=== PATIENT | female | born 2000 | race Caucasian/White ===

== ENCOUNTER 2018-03-07 11:24 | Emergency (ER) | payer MEDICAID ==
[~2018-03-07] VITALS: Ht 160 cm; Wt 66.0 kg
[2018-03-07 11:29] VITALS: BP 112/73
== END 2018-03-07 12:20 | disposition home or self-care (01) ==
LOC: ED 12:04
DX: N64.4 Mastodynia (principal)
CPT/HCPCS: 99281

== ENCOUNTER 2018-12-23 17:17 | Emergency (ER) | payer MEDICAID ==
[~2018-12-23] VITALS: Ht 170.2 cm; Wt 68.4 kg
[2018-12-23 17:28] VITALS: BP 114/82
== END 2018-12-23 19:39 | disposition home or self-care (01) ==
LOC: ED 19:00
DX: M25.531 Pain in right wrist (principal); Y08.89XA Assault by other specified means, initial encounter; Y93.89 Activity, other specified; Y92.89 Other specified places as the place of occurrence of the external cause; Y99.8 Other external cause status
CPT/HCPCS: 29125; 99283

== ENCOUNTER 2019-04-29 17:09 | Emergency (ER) | payer MEDICAID ==
[~2019-04-29] VITALS: Ht 157.5 cm; Wt 71.0 kg
--- NOTE | 2019-04-29 17:44 | NUR ---
[employer]: PT AMBULATORY TO ROOM FROM LOBBY
[2019-04-29 17:47] LABS: BASOPHILS # (AUTO) 0.05 x10^3/uL (0-0.3); BASOPHILS % (AUTO) 1 % (0-1); EOSINOPHILS # (AUTO) 0.08 x10^3/uL (0-0.8); EOSINOPHILS % (AUTO) 1 % (1-7); LYMPHOCYTES # (AUTO) 2.26 x10^3/uL (1-6.1); LYMPHOCYTES % (AUTO) 23 % (22-44); MD NO; MEAN CORPUSCULAR HEMOGLOBIN 29.7 pg (27.0-34.8); MEAN CORPUSCULAR HGB CONC 33.8 g/dL (32.4-35.8); MEAN CORPUSCULAR VOLUME 87.9 fL (80-100); MONOCYTES # (AUTO) 0.74 x10^3/uL (0-1.4); MONOCYTES % (AUTO) 8 % (2-9); NEUTROPHILS # (AUTO) 6.57 x10^3/uL (1.8-8.0); NEUTROPHILS % (AUTO) 68 % (42-75); PLATELET COUNT 334 x10^3/uL (130-400); RED BLOOD COUNT 5.25 x10^6/uL (3.82-5.3); RED CELL DISTRIBUTION WIDTH 13.8 % (9.6-15.2)
[2019-04-29 17:56] VITALS: BP 134/90
--- NOTE | 2019-04-29 17:56 | NUR ---
PT TO ED FOR NAUSEA, RUQ ABD PAIN AND BURNING WITH URINATION 2 WEEKS AGO. PT DENIES URINARY S/S AT THIS TIME. PT ALSO STATES HER PERIOD IS 3 DAYS LATE. LMP 03/27/2019. [facility] CAMERON TO BS FOR ASSESSMENT. AWAITING RESULTS FROM PIT ORDERS.
[2019-04-29 18:02] LABS: ALANINE AMINOTRANSFERASE 73 U/L (12-78); ALBUMIN 4.1 g/dL (3.4-5.0); ANION GAP 6 mmol/L (5-15); CALCIUM 9.3 mg/dL (8.5-10.1); CHLORIDE 106 mmol/L (98-107); CREATININE 0.84 mg/dL (0.55-1.02)
[2019-04-29 18:07] LABS: ALKALINE PHOSPHATASE 87 U/L (45-117); BILIRUBIN,TOTAL 0.5 mg/dL (0.2-1.0); TOTAL PROTEIN 8.2 g/dL (6.4-8.2)
[2019-04-29 18:21] LABS: MICROSCOPIC NOT IND
[2019-04-29 18:31] LABS: CULTURE INDICATED? NO
--- NOTE | 2019-04-29 18:45 | NUR ---
Dr. Ochoa to bs to update on results and poc. plan to dc. pt dressing now.
--- NOTE | 2019-04-29 19:07 | NUR ---
Patient/Caregiver given discharge instructions and they have confirmed that they understand the instructions. Patient ambulatory with steady gait.
== END 2019-04-29 19:09 | disposition home or self-care (01) ==
LOC: ED 18:52
DX: R10.84 Generalized abdominal pain (principal); R30.0 Dysuria
CPT/HCPCS: 36415; 80053; 81003; 83690; 84703; 85025; 99283

== ENCOUNTER 2019-10-26 13:34 | Emergency (ER) | payer OTHER, MEDICAID ==
[~2019-10-26] VITALS: Ht 157.5 cm; Wt 75.4 kg
[2019-10-26 13:38] VITALS: BP 132/72
[2019-10-26] MEDS ORDERED: KETOROLAC 30 MG/1 ML IM ONE (16:00)
[2019-10-26] MEDS ORDERED: METHOCARBAMOL 750 MG TABLET PO ONE (16:00)
[2019-10-26] MEDS ORDERED: METHOCARBAMOL 750 MG TABLET ONE (16:07)
[2019-10-26] MEDS ORDERED: KETOROLAC 30 MG/1 ML ONE (16:07)
== END 2019-10-26 17:21 | disposition home or self-care (01) ==
LOC: ED 15:09
DX: S46.812A Strain of other muscles, fascia and tendons at shoulder and upper arm level, left arm, initial encounter (principal); X58.XXXA Exposure to other specified factors, initial encounter; Y93.89 Activity, other specified; Y92.89 Other specified places as the place of occurrence of the external cause; Y99.8 Other external cause status
CPT/HCPCS: 73030; 96372; 99283; J1885

== ENCOUNTER 2020-04-24 23:02 | Emergency (ER) | payer OTHER, MEDICAID ==
[~2020-04-24] VITALS: Ht 157.5 cm; Wt 76.5 kg
[2020-04-24 23:54] VITALS: BP 121/86
== END 2020-04-25 00:23 | disposition home or self-care (01) ==
LOC: EDBD 04-25 00:02 → ED 04-25 00:02
DX: R21 Rash and other nonspecific skin eruption (principal); J45.909 Unspecified asthma, uncomplicated
CPT/HCPCS: 99283

== ENCOUNTER 2020-11-24 21:40 | Emergency (ER) | payer OTHER, MEDICAID ==
[~2020-11-24] VITALS: Ht 160 cm; Wt 78.3 kg
[2020-11-24 21:50] VITALS: BP 127/90
[2020-11-24] MEDS ORDERED: LIDODERM 5% PATCH TD ONE ×2 (22:55→23:00)
[2020-11-24] MEDS ORDERED: ACETAMINOPHEN 500 MG TABLET ONE (22:55)
[2020-11-24] MEDS ORDERED: ACETAMINOPHEN 325 MG TABLET PO ONE (23:00)
[2020-11-24 23:27] LABS: HCG UR SG 1.021 (1.003-1.030); MICROSCOPIC NOT IND
[2020-11-25] MEDS ORDERED: KETOROLAC 30 MG/1 ML ONE (00:26)
[2020-11-25] MEDS ORDERED: METHOCARBAMOL 750 MG TABLET ONE (00:26)
[2020-11-25] MEDS ORDERED: KETOROLAC 30 MG/1 ML IM ONE (00:30)
[2020-11-25] MEDS ORDERED: METHOCARBAMOL 750 MG TABLET PO ONE (00:30)
== END 2020-11-25 00:41 | disposition home or self-care (01) ==
LOC: ED 23:51
DX: M54.41 Lumbago with sciatica, right side (principal)
CPT/HCPCS: 72110; 81003; 81025; 96372; 99284; J1885

== ENCOUNTER 2021-02-01 17:20 | Emergency (ER) | payer OTHER, MEDICAID ==
[2021-02-01 18:21] VITALS: BP 144/85
== END 2021-02-01 19:03 | disposition home or self-care (01) ==
LOC: ED 17:30
DX: L20.84 Intrinsic (allergic) eczema (principal); Z88.5 Allergy status to narcotic agent
CPT/HCPCS: 99283